=== PATIENT | male | born 1955 | race Caucasian/White ===

== ENCOUNTER 2023-12-22 10:46 | Inpatient (IN) | payer OTHER ==
[2023-12-22] MEDS ORDERED: HYDROMORPHONE HCL 1 MG/ML INJ ONE (11:18)
[2023-12-22] MEDS ORDERED: ONDANSETRON 4 MG/2 ML VIAL ONE (11:18)
[2023-12-22 11:26] LABS: Absolute Eosinophils 0.2 K/uL (0-0.5); Absolute Lymphocytes (CBC) 0.8 K/uL (0.7-4.9); Absolute Monocytes 0.7 K/uL (0.1-1.3); Absolute Neutrophil 2.9 K/uL (1.8-8.0); Basophils % 0.8 % (0-1.3); Eosinophils % 4.8 % (0-4.4); Hematocrit 29.5 % (39.6-49.0); Hemoglobin 9.2 g/dL (13.6-17.9); MCH 24.7 pg (27.0-35.0); MCV 79.7 fL (80-100); MPV 9.3 fL (7.6-11.3); Monocytes % 14.5 % (3.3-12.3); Neutrophils % 62.9 % (41.7-73.7); Platelets 139 thou/uL (152-406); Red Cell Distribution Width 16.7 % (12.1-15.2)
[2023-12-22 11:40] LABS: PT Prothrombin Time 11.5 SECONDS (9.5-12.5); Protime INR 1.05
--- NOTE | 2023-12-22 11:41 | RAD REPORT ---
EXAM DESCRIPTION: CT - Head Brain Wo Cont - 12/22/2023 11:31 am CLINICAL HISTORY: Headache COMPARISON: none TECHNIQUE: Computed axial tomography of the head was obtained. IV contrast was not requested. All CT scans are performed using dose optimization technique as appropriate and may include automated exposure control or mA/KV adjustment according to patient size. FINDINGS: An intracranial bleed is not seen The ventricles are normal in caliber No significant hypodense areas within the brain visualized No extra-axial fluid collection is noted. Fluid within the sinuses/ mastoids is not seen IMPRESSION: No acute intracranial abnormality is seen If patient's symptoms persist MRI of the brain would be recommended
--- NOTE | 2023-12-22 11:45 | RAD REPORT ---
EXAM DESCRIPTION: CT - Chest For Pe Angio - 12/22/2023 11:31 am CLINICAL HISTORY: Chest pain COMPARISON: None. TECHNIQUE: Dynamically enhanced axial 3 mm thick images of the chest were obtained during administra tion of 100 mL Isovue 370 IV contrast. Coronal and oblique reconstruction images were generated and r eviewed. Exam utilizes a protocol for optimal evaluation of pulmonary arterial tree. Maximum intensity projections 3D imaging was utilized All CT scans are performed using dose optimization technique as appropriate and may include automated exposure control or mA/KV adjustment according to patient size. FINDINGS: A pulmonary embolus is not seen. A thoracic aortic aneurysm is not noted. A pleural effusion is not seen. A pericardial effusion is not seen. Cardiomegaly A lung consolidation is not present. IMPRESSION: Negative for a pulmonary embolism.
[2023-12-22] MEDS ORDERED: KETOROLAC 30 MG/ML INJ ONE (11:59)
[2023-12-22 12:01] LABS: Albumin 3.3 g/dL (3.4-5.0); Albumin/Globulin Ratio 0.8 (1.1-1.8); Anion Gap 5.7 mEq/L (5.0-15.0); Bilirubin Direct 0.1 mg/dL (0-0.2); Bilirubin Indirect, Calculated 0.2 mg/dL (0.2-0.8); Bilirubin Total 0.3 mg/dL (0.2-1.0); Globulin 4.3 g/dL (2.3-3.5); Magnesium 2.2 mg/dL (1.6-2.4); Potassium 3.7 mEq/L (3.5-5.1); Protein, Total 7.6 g/dL (6.4-8.2); Troponin High Sensitivity 15.3 pg/mL (<58.9)
--- NOTE | 2023-12-22 13:36 | ER ---
Nurse's Notes [facility] Name: Jorge Patterson Age: 68 yrs Sex: Male : 1955 Arrival Date: 12/22/2023 Time: 10:46 Bed 18 Private MD: Diagnosis: NSTEMI, Chest Pain Presentation: 12/21 10:50 Chief complaint: Patient states: right sided chest pain radiating to right arm X 30 iw min. Coronavirus screen: At this time, the client does not indicate any symptoms associated with coronavirus-19. Ebola Screen: Patient negative for fever greater than or equal to 101.5 degrees Fahrenheit, and additional compatible Ebola Virus Disease symptoms Patient denies exposure to infectious person. Patient denies travel to an Ebola-affected area in the 21 days before illness onset. No symptoms or risks identified at this time. Initial Sepsis Screen: Does the patient meet any 2 criteria? No. Patient's initial sepsis screen is negative. Does the patient have a suspected source of infection? No. Patient's initial sepsis screen is negative. Risk Assessment: Do you want to hurt yourself or someone else? Patient reports no desire to harm self or others. Onset of symptoms was December 22, 2023. 10:50 Method Of Arrival: Wheelchair iw 10:50 Acuity: ERICKA 3 iw Historical: - Allergies: 10:51 No Known Allergies; iw - Home Meds: 10:51 None [Active]; iw - PMHx: 10:51 None; iw - PSHx: 11:00 Cholecystectomy; iw - Immunization history:: Adult Immunizations not up to date. - Infectious Disease History:: Denies. - Social history:: Smoking status: Patient denies any tobacco usage or history of. Screenin:26 [facility] ED Fall Risk Assessment (Adult) History of falling in the last 3 months, db including since admission No falls in past 3 months (0 pts) Confusion or Disorientation No (0 pts) Intoxicated or Sedated No (0 pts) Impaired Gait No (0 pts) Mobility Assist Device Used No (0 pt) Altered Elimination No (0 pt) Score/Fall Risk Level 0 - 2 = Low Risk Oriented to surroundings, Maintained a safe environment. Abuse screen: Denies threats or abuse. Denies injuries from another. Nutritional screening: No deficits noted. Tuberculosis screening: No symptoms or risk factors identified. Assessment: 11:15 Reassessment: Patient appears in no apparent distress at this time. Patient and/or db family updated on plan of care and expected duration. Pain level reassessed. Patient is alert, oriented x 3, equal unlabored respirations, skin warm/dry/pink. General: Appears in no apparent distress. comfortable, Behavior is calm, cooperative. Pain: Complains of pain in chest and right arm Pain radiates to back and chest. Pain: Pain began suddenly, 1 hour ago. Neuro: Level of Consciousness is awake, alert, obeys commands, Oriented to person, place, time, situation. Cardiovascular: Reports chest pain, Capillary refill < 3 seconds Patient's skin is warm and dry. 13:07 Reassessment: Patient appears in no apparent distress at this time. Patient and/or db family updated on plan of care and expected duration. Pain level reassessed. Patient is alert, oriented x 3, equal unlabored respirations, skin warm/dry/pink. Patient states feeling better. Patient states symptoms have improved. 13:34 Reassessment: Patient appears in no apparent distress at this time. Patient and/or db family updated on plan of care and expected duration. Pain level reassessed. Patient is alert, oriented x 3, equal unlabored respirations, skin warm/dry/pink. REPEAT EKG DONE AND GIVEN TO PROVIDER. 14:20 Reassessment: Patient appears in no apparent distress at this time. Patient and/or db family updated on plan of care and expected duration. Pain level reassessed. Patient is alert, oriented x 3, equal unlabored respirations, skin warm/dry/pink. Patient states feeling better. Patient states symptoms have improved. 15:00 Reassessment: PT REFUSED GOWN. db 15:14 Reassessment: CALLED LAB FOR ADD ON PTT. db 15:30 Reassessment: Patient appears in no apparent distress at this time. Patient and/or db family updated on plan of care and expected duration. Pain level reassessed. Patient is alert, oriented x 3, equal unlabored respirations, skin warm/dry/pink. Patient states feeling better. Patient states symptoms have improved. Vital Signs: 11:01 BP 177 / 105; Pulse 68; Resp 16; Temp 97.8; Pulse Ox 97% ; Weight 72.57 kg; Height 6 iw ft. 0 in. ; Pain 10/10; 11:30 BP 166 / 89; Pulse 70; Resp 18; Pulse Ox 94% on R/A; db 12:30 BP 147 / 87; Pulse 64; Resp 18; Pulse Ox 97% on R/A; db 13:00 BP 161 / 82; Pulse 64; Resp 16; Pulse Ox 97% on R/A; db 13:30 BP 146 / 99; Pulse 73; Resp 14; Pulse Ox 96% on R/A; db 14:00 BP 136 / 88; Pulse 62; Resp 16; Pulse Ox 97% on R/A; db 15:00 BP 127 / 78; Pulse 68; Resp 18; Temp 97.8; Pulse Ox 95% ; db 15:30 BP 118 / 86; Pulse 71; Resp 18; Pulse Ox 95% on R/A; db 11:01 Body Mass Index 21.70 (72.57 kg, 182.88 cm) iw 11:01 Pain Scale: Adult iw ED Course: 10:47 Patient arrived in ED. mr 10:50 Diane Wray MD is Attending Physician. sp3 10:51 Triage completed. iw 11:00 Arm band placed on. iw 11:06 Vanessa Ortega, RN is Primary Nurse. db 11:15 Inserted saline lock: 22 gauge in left forearm, using aseptic technique. Blood db collected. 11:15 Initial lab(s) drawn, by me, sent to lab. db 11:[address] db 11:26 Patient has correct armband on for positive identification. Bed in low position. Call db light in reach. Side rails up X 1. Client placed on continuous cardiac and pulse oximetry monitoring. NIBP monitoring applied. youth nutritional monitor on. Pulse ox on. NIBP on. Warm blanket given. 11:33 CT Chest For PE Angio In Process Unspecified. EDMS 11:33 CT Head Brain wo Cont In Process Unspecified. EDMS 12:59 Repeat lab(s) drawn. by me, sent to lab. iw 13:34 EKG done, by ED staff, reviewed by Diane Wray MD. db 13:35 Juan Marrufo MD is Hospitalizing Provider. sp3 16:06 Provided Education on: ADMISSION AND CHEST PAIN. db 16:06 No provider procedures requiring assistance completed. Patient admitted, IV remains in db place. O2 via ROOM AIR. Administered Medications: 11:18 Drug: HYDROmorphone IVP 1 mg IVP once Route: IVP; Site: left forearm; db 13:53 Follow up: Response: No adverse reaction db 11:18 Drug: Ondansetron IVP 4 mg IVP once; over 2 minutes Route: IVP; Site: left forearm; db 13:53 Follow up: Response: No adverse reaction db 11:58 Drug: Ketorolac IVP 15 mg IVP once Route: IVP; Site: left forearm; db 13:53 Follow up: Response: No adverse reaction; Pain is decreased db 13:51 Drug: Aspirin PO Chewable Tablet 324 mg PO once; 81 mg tablets x 4 Route: PO; db 16:05 Follow up: Response: No adverse reaction db 15:21 Drug: Heparin ([place]-Bolus No thrombolytic) - HEParin IVP 60 units/kg IVP once; Max 5000 db units {Co-Signature: iw (Linda Fitzpatrick RN).} Route: IVP; Site: left forearm; 16:05 Follow up: Response: No adverse reaction db 15:21 Drug: Heparin ([place] Drip) 12 units/kg/[place] - ([place] [address] units, D5W IV 500 ml) IV at db calculated rate Per protocol; Max initial rate 1000 units/hr {Co-Signature: iw (Linda Fitzpatrick RN).} Route: IV; Rate: calculated rate; Site: left forearm; 16:05 Follow up: Response: No adverse reaction; IV Status: Infusion continued db Medication: 11:27 VIS not applicable for this client. db Outcome: 13:35 Decision to Hospitalize by Provider. sp3 16:06 Admitted to Med/surg via stretcher, with chart, db 16:06 Condition: stable 16:06 Instructed on the need for admit, 16:08 Patient left the ED. db Signatures: Dispatcher [employer] EDIN Татьяна Camargo, Reg Reg mr Linda Fitzpatrick, SILVA RN iw Diane Wray MD MD sp3 Vanessa Ortega RN RN db Linda Fitzpatrick RN iw Corrections: (The following items were deleted from the chart) 11:02 11:01 Pulse 68bpm; Resp 16bpm; Pulse Ox 97%; Temp 97.8F; 72.57 kg; Height 6 ft. 0 in.; iw BMI: 21.7; Pain 10/10, Adult; iw
--- NOTE | 2023-12-22 13:36 | EDPHYS ---
Physician Documentation [facility] Name: Jorge Patterson Age: 68 yrs Sex: Male : 1955 Arrival Date: 12/22/2023 Time: 10:46 Bed 18 Private MD: ED Physician Diane Wray HPI: 12/21 11:02 This 68 yrs old Male presents to ER via Wheelchair with complaints of Chest Pain, Arm sp3 Pain. 11:02 68-year-old male with no past medical history on no medications presents to the ED with sp3 a 2-hour history of right-sided chest pain radiating to his arm and headache. He denies any left-sided symptoms, shortness of breath, back pain, abdominal pain, vomiting, diarrhea, injury or trauma, recent travel or prolonged immobilization, prior PE or DVT thromboembolic disease, fever, URI symptoms, repetitive use or labor, or any other signs or symptoms on ROS at this time. Pain is described as sharp in nature on the right side of his chest.. Historical: - Allergies: 10:51 No Known Allergies; iw - Home Meds: 10:51 None [Active]; iw - PMHx: 10:51 None; iw - PSHx: 11:00 Cholecystectomy; iw - Immunization history:: Adult Immunizations not up to date. - Infectious Disease History:: Denies. - Social history:: Smoking status: Patient denies any tobacco usage or history of. ROS: 11:03 Constitutional: Negative for fever, chills, and weight loss, Eyes: Negative for injury, sp3 pain, redness, and discharge, ENT: Negative for injury, pain, and discharge, Neck: Negative for injury, pain, and swelling, Respiratory: Negative for shortness of breath, cough, wheezing, and pleuritic chest pain, Abdomen/GI: Negative for abdominal pain, nausea, vomiting, diarrhea, and constipation, Back: Negative for injury and pain, MS/Extremity: Negative for injury and deformity, Skin: Negative for injury, rash, and discoloration, Psych: Negative for depression, anxiety, suicide ideation, homicidal ideation, and hallucinations, Allergy/Immunology: Negative for hives, rash, and allergies, Endocrine: Negative for neck swelling, polydipsia, polyuria, polyphagia, and marked weight changes, Hematologic/Lymphatic: Negative for swollen nodes, abnormal bleeding, and unusual bruising, 11:03 All other systems are negative, Exam: 11:03 Constitutional: This is a well developed, well nourished patient who is awake, alert, sp3 and in no acute distress. Head/Face: Normocephalic, atraumatic. Eyes: Pupils equal round and reactive to light, extra-ocular motions intact. Lids and lashes normal. Conjunctiva and sclera are non-icteric and not injected. Cornea within normal limits. Periorbital areas with no swelling, redness, or edema. ENT: Nares patent. No nasal discharge, no septal abnormalities noted. External auditory canals are clear. Oropharynx with no redness, swelling, or masses, exudates, or evidence of obstruction, uvula midline. Mucous membranes moist. Neck: Trachea midline, no thyromegaly or masses palpated, and no cervical lymphadenopathy. Supple, full range of motion without nuchal rigidity, or vertebral point tenderness. No Meningismus. Chest/axilla: Normal chest wall appearance and motion. Nontender with no deformity. No lesions are appreciated. Cardiovascular: Regular rate and rhythm with a normal S1 and S2. No gallops, murmurs, or rubs. Normal PMI, no JVD. No pulse deficits. Respiratory: Lungs have equal breath sounds bilaterally, clear to auscultation and percussion. No rales, rhonchi or wheezes noted. No increased work of breathing, no retractions or nasal flaring. Abdomen/GI: Soft, non-tender, with normal bowel sounds. No distension or tympany. No guarding or rebound. No evidence of tenderness throughout. Back: No spinal tenderness. No costovertebral tenderness. Full range of motion. Skin: Warm, dry with normal turgor. Normal color with no rashes, no lesions, and no evidence of cellulitis. MS/ Extremity: Pulses equal, no cyanosis. Neurovascular intact. Full, normal range of motion. Neuro: Awake and alert, GCS 15, oriented to person, place, time, and situation. Cranial nerves II-XII grossly intact. Motor strength 5/5 in all extremities. Sensory grossly intact. Cerebellar exam normal. Normal gait. Psych: Awake, alert, with orientation to person, place and time. Behavior, mood, and affect are within normal limits. 11:03 ECG was reviewed by the Attending Physician. EKG demonstrates normal sinus rhythm at 60 bpm with normal intervals, normal QRS, high voltage, nonspecific diffuse ST's ST changes without evidence of acute ischemia. Vital Signs: 11:01 BP 177 / 105; Pulse 68; Resp 16; Temp 97.8; Pulse Ox 97% ; Weight 72.57 kg; Height 6 iw ft. 0 in. ; Pain 10/10; 11:30 BP 166 / 89; Pulse 70; Resp 18; Pulse Ox 94% on R/A; db 12:30 BP 147 / 87; Pulse 64; Resp 18; Pulse Ox 97% on R/A; db 13:00 BP 161 / 82; Pulse 64; Resp 16; Pulse Ox 97% on R/A; db 13:30 BP 146 / 99; Pulse 73; Resp 14; Pulse Ox 96% on R/A; db 14:00 BP 136 / 88; Pulse 62; Resp 16; Pulse Ox 97% on R/A; db 15:00 BP 127 / 78; Pulse 68; Resp 18; Temp 97.8; Pulse Ox 95% ; db 15:30 BP 118 / 86; Pulse 71; Resp 18; Pulse Ox 95% on R/A; db 11:01 Body Mass Index 21.70 (72.57 kg, 182.88 cm) iw 11:01 Pain Scale: Adult iw MDM: 10:52 Patient medically screened. sp3 11:04 Data reviewed: vital signs, nurses notes, lab test result(s), EKG, radiologic studies. sp3 ED course: 68-year-old male with right-sided chest pain and headache. Differential diagnosis includes acute coronary syndrome spectrum, pleurisy, MSK pain, PE, pneumonia, other intracranial pathology, among others. Workup will include CT scan of the chest and a PE protocol, CT scan of the head, EKG, laboratory values and general supportive care and treatment with Dilaudid and Zofran IV. Disposition pending workup and patient course.. 12:56 ED course: Negative workup on patient including CT head, CT chest and laboratory values sp3 and troponin. Patient feels much improved after the ketorolac. I offered 23-hour observation and cardiology consultation. Patient elects to go home. We will obtain 1 more troponin value prior to discharge. I have urged patient to stay however he states he will come back if he gets worse and follow-up with cardiology outpatient. Will treat this is an informed discharge after second troponin and safely discharge him home with instructions to return for any reason whatsoever.. 13:34 ED course: Second troponin 289. Chest pain is fairly resolved at this time. Repeat EKG sp3 and vital signs are pending. We will place patient inpatient and consult cardiology which I have already spoken with Dr. Hayes.. 13:43 ED course: Second EKG taken at 1334 demonstrates no significant interval change and no sp3 concerning ST/T-segment changes.. 12/21 10:57 Order name: Basic Metabolic Panel; Complete Time: 12:16 sp3 12/21 10:57 Order name: CBC with Diff; Complete Time: 11:57 3 12/21 10:57 Order name: LFT's; Complete Time: 12:16 3 12/21 10:57 Order name: Magnesium; Complete Time: 12:16 3 12/21 10:57 Order name: NT PRO-BNP; Complete Time: 12:16 sp3 12/21 10:57 Order name: PT-INR; Complete Time: 11:57 3 12/21 10:57 Order name: Troponin HS; Complete Time: 12:16 3 12/21 12:51 Order name: Troponin High Sensitivity; Complete Time: 13:32 sp3 12/21 15:14 Order name: Ptt, Activated; Complete Time: 15:29 db 12/21 10:57 Order name: CT Chest For PE Angio; Complete Time: 11:57 12/21 10:57 Order name: CT Head Brain wo Cont; Complete Time: 11:57 3 12/21 10:57 Order name: EKG; Complete Time: 10:57 12/21 10:57 Order name: Cardiac monitoring; Complete Time: 11:23 3 12/21 10:57 Order name: EKG - Nurse/Tech; Complete Time: 11:23 sp3 12/21 10:57 Order name: IV Saline Lock; Complete Time: 11:23 12/21 10:57 Order name: Labs collected and sent; Complete Time: 11:23 3 12/21 10:57 Order name: O2 Per Protocol; Complete Time: 11:24 12/21 10:57 Order name: O2 Sat Monitoring; Complete Time: 11:24 12/21 10:57 Order name: NPO; Complete Time: 12:19 sp3 Administered Medications: 11:18 Drug: HYDROmorphone IVP 1 mg IVP once Route: IVP; Site: left forearm; db 13:53 Follow up: Response: No adverse reaction db 11:18 Drug: Ondansetron IVP 4 mg IVP once; over 2 minutes Route: IVP; Site: left forearm; db 13:53 Follow up: Response: No adverse reaction db 11:58 Drug: Ketorolac IVP 15 mg IVP once Route: IVP; Site: left forearm; db 13:53 Follow up: Response: No adverse reaction; Pain is decreased db 13:51 Drug: Aspirin PO Chewable Tablet 324 mg PO once; 81 mg tablets x 4 Route: PO; db 16:05 Follow up: Response: No adverse reaction db 15:21 Drug: Heparin ([place]-Bolus No thrombolytic) - HEParin IVP 60 units/kg IVP once; Max 5000 db units {Co-Signature: Linda Panda RN).} Route: IVP; Site: left forearm; 16:05 Follow up: Response: No adverse reaction db 15:21 Drug: Heparin ([place] Drip) 12 units/kg/[place] - ([place] [address] units, D5W IV 500 ml) IV at db calculated rate Per protocol; Max initial rate 1000 units/hr {Co-Signature: Linda Panda RN).} Route: IV; Rate: calculated rate; Site: left forearm; 16:05 Follow up: Response: No adverse reaction; IV Status: Infusion continued db Disposition Summary: 12/22/23 13:35 Hospitalization Ordered Notes: Hospitalization Status: Inpatient Admission sp3 Provider: Juan Marrufo sp3 Location: Telemetry/MedSur (Inpatient) sp3 Condition: Stable sp3 Problem: an acute exacerbation sp3 Symptoms: have worsened sp3 Bed/Room Type: Standard sp3 Room Assignment: 205(12/22/23 14:59) bd Diagnosis - NSTEMI, Chest Pain sp3 Forms: - Medication Reconciliation Form sp3 - SBAR form sp3 - Leadership Thank You Letter sp3 Signatures: Dispatcher [employer] EDMS Kiera Delarosa Irene, RN RN Orion Jeffries FNP-C FNP-[facility] Diane Wray MD MD sp3 Vanessa Ortega RN RN db Linda Fitzpatrick RN iw Corrections: (The following items were deleted from the chart) 10:57 10:57 BASIC METABOLIC PANEL+C.LAB.BRZ ordered. EDMS EDMS 10:57 10:57 CBC+H.LAB.BRZ ordered. EDMS EDMS 10:57 10:57 HEPATIC FUNCTION+C.LAB.BRZ ordered. EDMS EDMS 10:57 10:57 MAGNESIUM+C.LAB.BRZ ordered. EDMS EDMS 10:57 10:57 PROBNP+C.LAB.BRZ ordered. EDMS EDMS 10:57 10:57 PROTIME (+INR)+COAG.LAB.BRZ ordered. EDMS EDMS 10:57 10:57 Troponin High Sensitivity+C.LAB.BRZ ordered. EDMS EDMS 10:57 10:57 Chest For PE Angio+CT.RAD.BRZ ordered. EDMS EDMS 10:57 10:57 Head Brain Wo Cont+CT.RAD.BRZ ordered. EDMS EDMS 14:59 13:35 sp3 bd
[2023-12-22] MEDS ORDERED: ASPIRIN 81 MG CHEWABLE TABLET ONE (13:50)
[2023-12-22] MEDS ORDERED: HEPARIN 5000 UNIT/ML 1 ML VIAL ONE (14:28)
[2023-12-22] MEDS ORDERED: HEPARIN/D5W 25,000 UNIT/500 ML BAG IV ONE (14:29)
--- NOTE | 2023-12-22 15:07 | P.HP ---
Certification for Inpatient Patient admitted to: Inpatient With expected LOS: >2 Midnights Patient will require the following post-hospital care: None Practitioner: I am a practitioner with admitting privileges, knowledge of patient current condition, hospital course, and medical plan of care. Services: Services provided to patient in accordance with Admission requirements found in Title 42 Section 412.3 of the Code of Federal Regulations Patient History Date of Service: 12/22/23 Reason for admission: NSTEMI History of Present Illness: 68-year-old otherwise healthy male presents the emergency department chief complaint of right arm pain, chest pain. He reports that his symptoms started while walking around today getting ready to move. He also noted that he rides his bike approximately 15 miles per day approximately 5 days/week in the past few times has been riding his bike he had similar pain in his right arm radiating to his chest. He does not see a doctor regularly and has not had any testing including stress test or heart catheterization in the past. He was evaluated in the emergency department his initial high sensitive troponin was within normal limits, second troponin was obtained as initially patient wanted to go home but it was elevated at 289.1, patient agreeable to stay in the hospital for NSTEMI. Of note he was also anemic with a hemoglobin of 9.2, no known history of anemia denies bright red blood per rectum, melena or hematochezia. ED physician discussed case with cardiology who recommends admission to hospital service. 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 moist/pink Neck: Supple, 2+ carotid pulse no bruit, No LAD Respiratory: Clear to auscultation bilaterally, Normal air movement Cardiovascular: Regular rate/rhythm, Normal S1 S2 Gastrointestinal: Normal bowel sounds, No tenderness Musculoskeletal: No tenderness Integumentary: No rashes Neurological: Normal speech, Normal strength at 5/5 x4 extr, Normal tone, Normal affect - Studies Laboratory Data (last 24 hrs) 12/22/23 12/22/23 12/22/23 11:15 11:15 11:15 WBC 4.70 Hgb 9.2 L Hct 29.5 L Plt Count 139 L PT 11.5 INR 1.05 Sodium 137 Potassium 3.7 BUN 11 Creatinine 1.40 H Glucose 173 H Magnesium 2.2 Total Bilirubin 0.3 AST 19 ALT 21 Alkaline Phosphatase 84 Assessment and Plan - Plan Assessment: NSTEMI Microcytic anemia Plan: NSTEMI Given aspirin in ED Heparin drip ordered, trend troponin, monitor on telemetry Cardiology consulted, called by ED staff Echocardiogram ordered Initiated aspirin, statin, beta-delisa therapy Currently pain-free, n.p.o. after midnight in case of need for heart catheterization Microcytic anemia Not known to be anemic Denies melena, hematochezia, hematemesis Iron studies ordered Reports had a colonoscopy about 40 years ago Discussed importance of colonoscopy as an outpatient to further assess his anemia DVT PPX: Heparin drip Code status: Full Discharge Plan: Home Plan to discharge in: 72 Hours - Advance Directives Does patient have a Living Will: No Does patient have a Durable POA for Healthcare: No - Code Status/Comfort Care Code Status Assessed: Yes (Full code) Critical Care: No Time Spent Managing Pts Care (In Minutes): 70
[2023-12-22 18:18] VITALS: BMI 21.7
[2023-12-22] MEDS ORDERED: ONDANSETRON 4 MG/2 ML VIAL IV PRN (18:18)
[2023-12-22] MEDS: NICOTINE 21 MG/PAT TD SCH (18:23)
[2023-12-22] MEDS ORDERED: HEPARIN/D5W 25,000 UNIT/500 ML BAG IV SCH (18:26)
[2023-12-22] MEDS: ATORVASTATIN 40 MG TAB PO SCH (20:44)
[2023-12-22] MEDS: NA CHLORIDE 0.9% 1,000 ML IV SCH (20:44)
[2023-12-22] MEDS: METOPROLOL TAR 25 MG TAB PO SCH (20:45)
[2023-12-23 07:21] LABS: Absolute Basophils 0.1 K/uL (0-0.5); Absolute Eosinophils 0.2 K/uL (0-0.5); Absolute Monocytes 0.7 K/uL (0.1-1.3); Absolute Neutrophil 3.9 K/uL (1.8-8.0); Eosinophils % 4.2 % (0-4.4); Hematocrit 26.6 % (39.6-49.0); Hemoglobin 8.2 g/dL (13.6-17.9); Lymphocytes % 16.3 % (15.3-44.8); MCH 24.7 pg (27.0-35.0); MCV 79.6 fL (80-100); MPV 9.4 fL (7.6-11.3); Monocytes % 11.7 % (3.3-12.3); Neutrophils % 66.8 % (41.7-73.7); Platelets 108 thou/uL (152-406); RBC Red Blood Cell Count 3.34 M/uL (4.33-5.43); Red Cell Distribution Width 16.4 % (12.1-15.2)
[2023-12-23 07:49] LABS: Albumin 2.9 g/dL (3.4-5.0); Albumin/Globulin Ratio 0.8 (1.1-1.8); Anion Gap 7.2 mEq/L (5.0-15.0); Bilirubin Total 0.3 mg/dL (0.2-1.0); Ferritin 7.9 ng/mL (26-388); Globulin 3.8 g/dL (2.3-3.5); Potassium 4.2 mEq/L (3.5-5.1); Protein, Total 6.7 g/dL (6.4-8.2); Thyroid Stimulating Hormone 1.18 uIU/mL (0.358-3.740)
--- NOTE | 2023-12-23 08:31 | P.CNS ---
Date of Consult: 12/23/23 Chief Complaint: NSTEMI History of Present Illness: Patient with PMH of tobacco use, presented with chest pain/right arm pain that has been going on for few days but got worse yesterday, patient is active and ride a bike daily, denies any other associated symptoms. 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 [employer] - Social History Smoking Status: Current every day smoker Alcohol use: No CD- Drugs: No Caffeine use: Yes Place of Residence: Home Review of Systems 10-point ROS is otherwise unremarkable Physical Examination Temp Pulse Resp BP Pulse Ox 97.7 F 68 18 125/58 L 95 12/23/23 04:00 12/23/23 06:01 12/23/23 04:00 12/23/23 06:01 12/23/23 04:00 General: Alert, Oriented x3 HEENT: Atraumatic Neck: Supple Respiratory: Clear to auscultation bilaterally Cardiovascular: No edema, Regular rate/rhythm, Normal S1 S2 Gastrointestinal: Normal bowel sounds Laboratory Data (last 24 hrs) 12/22/23 12/22/23 12/22/23 11:15 11:15 11:15 WBC 4.70 Hgb 9.2 L Hct 29.5 L Plt Count 139 L PT 11.5 INR 1.05 APTT 31.8 Sodium Potassium BUN Creatinine Glucose Magnesium Total Bilirubin AST ALT Alkaline Phosphatase 12/22/23 11:15 WBC Hgb Hct Plt Count PT INR APTT Sodium 137 Potassium 3.7 BUN 11 Creatinine 1.40 H Glucose 173 H Magnesium 2.2 Total Bilirubin 0.3 AST 19 ALT 21 Alkaline Phosphatase 84 - Problems (1) NSTEMI (non-ST elevated myocardial infarction) Current Visit: Yes Status: Acute Plan: ASA 81 mg daily Heparin drip Lipitor 40 mg daily laboratory director today for coronary angiogram. (2) HTN (hypertension) Current Visit: Yes Status: Acute Plan: Continue Metoprolol get Echo (3) HLD (hyperlipidemia) Current Visit: Yes Status: Acute Plan: Continue Lipitor
[2023-12-23] MEDS ORDERED: LIDOCAINE 1% 20 ML MDV ONE (08:39)
[2023-12-23] MEDS ORDERED: HEPA 1000U/500MLS 2,000 UNIT/1,000 ML BAG IV ONE (08:40)
[2023-12-23] MEDS ORDERED: FENTANYL CITR 100 MCG/2 ML ONE (08:42)
[2023-12-23] MEDS ORDERED: VERAPAMIL HCL 10 MG/4 ML VIAL IV ONE (08:42)
[2023-12-23] MEDS ORDERED: MIDAZOLAM HCL 2 MG/2 ML INJ ONE (08:42)
[2023-12-23] MEDS ORDERED: HEPARIN 5000 UNIT/ML 1 ML VIAL ONE (08:42)
[2023-12-23] MEDS ORDERED: ATROPINE SULF 1 MG/10 ML SYR IV ONE (08:42)
[2023-12-23] MEDS ORDERED: TICAGRELOR 90 MG TABLET PO ONE (08:43)
[2023-12-23] MEDS ORDERED: ASPIRIN 325 MG TAB ONE (08:43)
[2023-12-23] MEDS ORDERED: CLOPIDOGREL 75 MG TABLET ONE (08:43)
[2023-12-23] MEDS ORDERED: HEPARIN 10,000 UNIT/10 ML VIAL IV ONE (08:43)
[2023-12-23] MEDS: ASPIRIN EC 81 MG TAB PO SCH (09:00)
--- NOTE | 2023-12-23 10:59 | OP ---
Date of Procedure: 12/23/2023 Surgeon: Jacques Conrad Procedures Performed: 1.Left heart catheterization. 2.Coronary angiogram. 3.PTCA of the diagonal branch. 4.PCI of the mid LAD. Indication For Procedure: Non-ST elevation CT. Complications: None. Sedation Time: 1 hour. Estimated Blood Loss: Less than 50 cc. Access: Right radial, closed by TR band. Description Of Procedure: After risks, benefits, and alternatives were explained to the patient, the patient agreed to proceed with procedure and signed informed consent. The patient was brought to [facility] catheterization lab, prepped and draped in sterile fashion. We accessed the right radial artery us ing micropuncture ultrasound-guided technique. A 6-Japanese sheath was introduced and a Phoenix 4 cathet er was advanced over J-wire to the left ventricular cavity. EDP was obtained. Pullback did not show any gradient. Selective angiogram was done. Next, we exchanged catheter for an XB LAD 3.5 mm guide . Heparin was administered. ACT was therapeutic. First run-through wire was passed into the diagon al and the second run-through wire was passed into the LAD across the lesion. PTCA of the diagonal b ranch was done with an NC 2.25 mm balloon and then we did pre-dilated the mid LAD lesions with a 3.0 mm balloon. Next, Synergy 3.5 x 28 mm drug-eluting stent was applied to close the lesion. Then, we re-crossed into the diagonal with an LAD wire and PTCA was done with a 2.5 mm balloon and then we pos tdilated the mid LAD stent with a 3.5 x 12 mm NC balloon up to 16 atmosphere. Final angiogram shows ALTAGRACIA-3 flow. The wires were removed. XB LAD guide was removed over a J-wire and access was closed w ith a TR band. Findings: 1.Left main is normal. 2.LAD, proximal 30% disease and mid hazy 70% disease that looks like an ulcerative plaque. PCI done with Synergy 3.5 x 28 mm drug-eluting stent. This was followed by mid mild intramyocardial bridge a nd then distal mild LI. 3.Diagonal 1 is a medium-sized artery, 2.5 mm in diameter, proximal 80% disease, PTCA was done with 2.5 mm balloon. Distal mild LI. 4.Left circ, mild luminal irregularities. 5.RCA, mild luminal irregularities. Assessment: 1.Significant mid LAD disease, that is the culprit lesion for the non-STEMI, so PCI was done with Sy nergy 3.5 x 28 mm drug-eluting stent. 2.Significant diagonal 1 disease, small artery for bifurcation and stenting, so PTCA was done. ALTAGRACIA -3 flow at the end. Plan: 1.Aspirin 81 mg daily for life. 2.Brilinta 180 mg p.o. x1 was given in the optical laboratory technician and advised to continue Brilinta 90 mg p.o. b.i. d. for 12 months. 3.Continue aggressive medical treatment for CAD. JASON/YOSEF Voice ID: [id number] Report ID: [id number]
[2023-12-23] MEDS: FUROSEMIDE 20 MG/ 2ML VIAL ONE (11:31)
[2023-12-23] MEDS: CLOPIDOGREL 75 MG TABLET PO ONE (12:00)
--- NOTE | 2023-12-23 13:38 | P.PN ---
Date of Service: 12/23/23 Subjective: Feeling better today S/P heart cath no acute events overnight ROS: 10 point ROS as noted above, otherwise negative Physical exam GEN: Alert, oriented, NAD HEENT: Normal conjunctiva, sclera anicteric CV: Regular rate and rhythm, no edema Pulm: Nonlabored respirations on room air ABD: Soft, nontender, nondistended MSK: No joint tenderness Integumentary: No rashes Neuro: Normal speech, normal affect Vitals reviewed Assessment: NSTEMI Iron deficiency anemia Plan: Secondary to NSTEMI secondary to LAD, diagonal 1 stenosis LAD stent placed, angioplasty performed on diagonal 1 Cardiology following Echocardiogram ordered Initiated aspirin, statin, beta-delisa therapy Possible discharge in AM if doing well Will need new RX for ASA, Plavix, Statin, metoprolol Iron deficiency anemia Not known to be anemic Denies melena, hematochezia, hematemesis Iron deficient on lab Reports had a colonoscopy about 40 years ago Discussed importance of colonoscopy as an outpatient to further assess his anemia/risk of malignancy Discussed need for PO iron, started DVT PPX: Lovenox Code status: Full Discharge Plan: Home Plan to discharge in: 24 hours Time Spent Managing Pts Care (In Minutes): 35
--- NOTE | 2023-12-23 16:42 | EKG ---
Test Date: 2023-12-23 Test Time: 11:12:45 Social Media Designer: CAILIN MEASUREMENT RESULTS: Intervals: Rate: 67 FL: 104 QRSD: 76 QT: 428 QTc: 452 [place]: P: 59 FL: 104 QRS: 81 T: 91 INTERPRETIVE STATEMENTS: Sinus rhythm with sinus arrhythmia with short FL with occasional premature ventricular complexes Nonspecific ST abnormality Abnormal ECG Compared to ECG 12/22/2023 13:34:29 Ventricular premature complex(es) now present Short FL interval now present ST (T wave) deviation now present Atrial premature complex(es) no longer present Left ventricular hypertrophy no longer present Electronically Signed On 12-23-23 16:41:18 CDT by Carson Rodriguez
--- NOTE | 2023-12-23 16:44 | EKG ---
Test Date: 2023-12-22 Test Time: 13:34:29 Mast Maker: WERNER MEASUREMENT RESULTS: Intervals: Rate: 71 KS: 114 QRSD: 94 QT: 420 QTc: 456 [place]: P: 48 KS: 114 QRS: 70 T: 78 INTERPRETIVE STATEMENTS: Sinus rhythm with premature supraventricular complexes Left ventricular hypertrophy Abnormal ECG Compared to ECG 12/22/2023 10:56:12 No significant changes Electronically Signed On 12-23-23 16:41:52 CDT by Carson Rodriguez
--- NOTE | 2023-12-23 16:45 | EKG ---
Test Date: 2023-12-22 Test Time: 10:56:12 Management Services Technician: WERNER MEASUREMENT RESULTS: Intervals: Rate: 68 MO: 112 QRSD: 96 QT: 402 QTc: 427 [place]: P: 66 MO: 112 QRS: 74 T: 77 INTERPRETIVE STATEMENTS: Sinus rhythm with premature supraventricular complexes Left ventricular hypertrophy Abnormal ECG No previous ECG available for comparison Electronically Signed On 12-23-23 16:42:03 CDT by Carson Rodriguez
[2023-12-23] MEDS ORDERED: TICAGRELOR 90 MG TABLET PO SCH (21:00)
[2023-12-24 01:05] VITALS: O2SAT 94
[2023-12-24 03:35] LABS: Absolute Eosinophils 0.2 K/uL (0-0.5); Absolute Lymphocytes (CBC) 1.1 K/uL (0.7-4.9); Absolute Monocytes 0.8 K/uL (0.1-1.3); Absolute Neutrophil 3.8 K/uL (1.8-8.0); Basophils % 0.6 % (0-1.3); Eosinophils % 3.3 % (0-4.4); Hematocrit 25.6 % (39.6-49.0); Hemoglobin 8.2 g/dL (13.6-17.9); Lymphocytes % 18.6 % (15.3-44.8); MCH 25.1 pg (27.0-35.0); MCHC 32.2 g/dL (32.0-36.0); MCV 78.1 fL (80-100); MPV 9.6 fL (7.6-11.3); Monocytes % 13.2 % (3.3-12.3); Neutrophils % 64.3 % (41.7-73.7); Nucleated Red Blood Cells % 0.1 % (0-0); Platelets 123 thou/uL (152-406); RBC Red Blood Cell Count 3.28 M/uL (4.33-5.43); Red Cell Distribution Width 16.5 % (12.1-15.2)
[2023-12-24 03:57] LABS: Albumin 3.1 g/dL (3.4-5.0); Albumin/Globulin Ratio 0.8 (1.1-1.8); Bilirubin Total 0.4 mg/dL (0.2-1.0); Globulin 3.9 g/dL (2.3-3.5)
--- NOTE | 2023-12-24 07:39 | ECHO ---
HEIGHT: 6 ft 0 in WEIGHT: 160 lb 0 oz DATE OF STUDY: 12/23/[address]: Orion Delgado NP 2-DIMENSIONAL: YES M.MODE: YES DOPPLER: YES COLOR FLOW: YES TDS: PORTABLE: YES DEFINITY: BUBBLE STUDY: DIAGNOSIS: NON ST ELEVATION MYOCARDIAL INFARCTION, MURMUR CARDIAC HISTORY: CATHERIZATION: YES SURGERY: NO PROSTHETIC VALVE: NO PACEMAKER: NO MEASUREMENTS (cm) DIASTOLIC (NORMALS) SYSTOLIC (NORMALS) IVSd 1.1 (0.6-1.2) LA Diam 2.1 (1.9-4.0) LVEF 82% LVIDd 3.3 (3.5-5.7) LVIDs 1.7 (2.0-3.5) %FS 49% LVPWd 1.2 (0.6-1.2) Ao Diam 3.0 (2.0-3.7) 2 DIMENSIONAL ASSESSMENT: RIGHT ATRIUM: POOR WINDOWS LEFT ATRIUM: POOR WINDOWS RIGHT VENTRICLE: POOR WINDOWS LEFT VENTRICLE: POOR WINDOWS TRICUSPID VALVE: POOR WINDOWS MITRAL VALVE: POOR WINDOWS PULMONIC VALVE: POOR WINDOWS AORTIC VALVE: POOR WINDOWS PERICARDIAL EFFUSION: POOR WINDOWS AORTIC ROOT: POOR WINDOWS LEFT VENTRICULAR WALL MOTION: DOPPLER/COLOR FLOW: COMMENTS: 1. POOR WINDOWS, LIMITED STUDY 2. OVERALL NORMAL LEFT VENTRICULAR EJECTION FRACTINO GREATER THAN 60% TECHNOLOGIST: DEVAN MCGOVERN
--- NOTE | 2023-12-24 08:02 | P.DS ---
Admission Date: 12/22/23 Discharge Date: 12/24/23 Disposition: ROUTINE DISCHARGE Discharge Condition: GOOD Reason for Admission: NSTEMI Consultations: Cardiology - Dr. Rodriguez / Dr. Conrad Brief History of Present Illness: 68yo M, PMH: iron deficiency anemia Patient presents the emergency department chief complaint of right arm pain, chest pain. He reports that his symptoms started while walking around today getting ready to move. He also noted that he rides his bike approximately 15 miles per day approximately 5 days/week in the past few times has been riding his bike he had similar pain in his right arm radiating to his chest. He does not see a doctor regularly and has not had any testing including stress test or heart catheterization in the past. He was evaluated in the emergency department his initial high sensitive troponin was within normal limits, second troponin was obtained as initially patient wanted to go home but it was elevated at 289.1, patient agreeable to stay in the hospital for NSTEMI. Of note he was also anemic with a hemoglobin of 9.2, no known history of anemia denies bright red blood per rectum, melena or hematochezia.ED physician discussed case with cardiology who recommends admission to hospital service. Hospital Course: Problem List: NSTEMI Iron deficiency anemia Physician discharge instructions Patient was admitted to the hospital for chest pain, right arm pain. His initial high-sensitivity troponin was within normal limits but repeat troponin was elevated. Patient was started on a heparin drip and monitored overnight, no further episode of chest pain but troponin trended up significantly up to 23,000. Patient underwent cardiac catheterization on 12/22 and was found to have LAD stenosis with stent placed and angioplasty of diagonal 1. Patient was also noted to be anemic with initial hemoglobin of 9.2, down to 8.2, stable. He was found to be iron deficient, last colonoscopy was reportedly around 20 years ago. Discussed need for iron supplementation, outpatient colonoscopy to evaluate / rule out GI source. At discharge patient will be prescribed the following medications Plavix 75 mg daily Atorvastatin 40 mg at bedtime Metoprolol tartrate 25 mg twice daily He was also instructed to purchase [id number] the following medications aspirin 81 mg daily [id number] iron supplement daily It is very important that you take the aspirin, Plavix, metoprolol and atorvastatin to prevent issues with your heart/this stent was placed Please follow-up with/establish yourself with a primary care doctor in the area in the next 1 to 2 weeks Please also follow-up with cardiology in 1 to 2 weeks You should also see a GI doctor to schedule a colonoscopy in the future giving your iron deficiency anemia Physical exam GEN: Alert, oriented, NAD HEENT: Normal conjunctiva, sclera anicteric CV: Regular rate and rhythm, no edema Pulm: Nonlabored respirations on room air ABD: Soft, nontender, nondistended MSK: No joint tenderness Integumentary: No rashes Neuro: Normal speech, normal affect Vital Signs/Physical Exam: Temp Pulse Resp BP Pulse Ox 97.8 F 88 17 128/73 96 12/24/23 04:00 12/24/23 05:46 12/24/23 04:00 12/24/23 05:46 12/24/23 04:00 Laboratory Data at Discharge: WBC 5.80 thou/uL (4.3-10.9) 12/24/23 02:24 Hgb 8.2 g/dL (13.6-17.9) L 12/24/23 02:24 Hct 25.6 % (39.6-49.0) L 12/24/23 02:24 Plt Count 123 thou/uL (152-406) L 12/24/23 02:24 PT 11.5 SECONDS (9.5-12.5) 12/22/23 11:15 INR 1.05 12/22/23 11:15 APTT 53.9 SECONDS (24.3-36.9) H 12/23/23 07:07 Sodium 137 mEq/L (136-145) 12/24/23 02:24 Potassium 4.0 mEq/L (3.5-5.1) 12/24/23 02:24 BUN 28 mg/dL (7-18) H 12/24/23 02:24 Creatinine 1.39 mg/dL (0.70-1.30) H 12/24/23 02:24 Glucose 107 mg/dL (74-106) H 12/24/23 02:24 Magnesium 2.2 mg/dL (1.6-2.4) 12/22/23 11:15 Total Bilirubin 0.4 mg/dL (0.2-1.0) 12/24/23 02:24 AST 52 U/L (15-37) H 12/24/23 02:24 ALT 23 U/L (16-61) 12/24/23 02:24 Alkaline Phosphatase 71 U/L (45-117) 12/24/23 02:24 Triglycerides 79 mg/dL (<150) 12/23/23 07:07 Cholesterol 129 mg/dL (<200) 12/23/23 07:07 HDL Cholesterol 41 mg/dL (40-60) 12/23/23 07:07 Cholesterol/HDL Ratio 3.15 12/23/23 07:07 Home Medications: Atorvastatin Calcium [Lipitor] 40 mg PO BEDTIME #30 tab 12/23/23 Clopidogrel Bisulfate [Plavix] 75 mg PO DAILY #30 tab 12/23/23 Metoprolol Tartrate [Lopressor*] 12.5 mg PO BID #30 tab 12/23/23 New Medications: Atorvastatin Calcium [Lipitor] 40 mg PO BEDTIME #30 tab Metoprolol Tartrate [Lopressor*] 12.5 mg PO BID #30 tab Clopidogrel Bisulfate [Plavix] 75 mg PO DAILY #30 tab Physician Discharge Instructions: Physician discharge instructions Patient was admitted to the hospital for chest pain, right arm pain. His initial high-sensitivity troponin was within normal limits but repeat troponin was elevated. Patient was started on a heparin drip and monitored overnight, no further episode of chest pain but troponin trended up significantly up to 23,000. Patient underwent cardiac catheterization on 12/22 and was found to have LAD stenosis with stent placed and angioplasty of diagonal 1. Patient was also noted to be anemic with initial hemoglobin of 9.2, down to 8.2, stable. He was found to be iron deficient, last colonoscopy was reportedly around 20 years ago. Discussed need for iron supplementation, outpatient colonoscopy to evaluate / rule out GI source. At discharge patient will be prescribed the following medications Plavix 75 mg daily Atorvastatin 40 mg at bedtime Metoprolol tartrate 25 mg twice daily He was also instructed to purchase [id number] the following medications aspirin 81 mg daily [id number] iron supplement daily It is very important that you take the aspirin, Plavix, metoprolol and tahir rvastatin to prevent issues with your heart/this stent was placed Please follow-up with/establish yourself with a primary care doctor in the area in the next 1 to 2 weeks Please also follow-up with cardiology in 1 to 2 weeks You should also see a GI doctor to schedule a colonoscopy in the future giving your iron deficiency anemia Diet: AHA Activity: Ad sachin Followup: Jacques Conrad MD [ACTIVE - CAN ADMIT] - 1-2 Weeks NONE,NONE [Primary Care Provider] - 1-2 Weeks Time spent managing pt's care (in minutes): 45
[2023-12-24] MEDS ORDERED: ENOXAPARIN 40 MG/0.4 ML SQ SCH (09:00)
[2023-12-24] MEDS: CLOPIDOGREL 75 MG TABLET PO SCH (11:38)
[2023-12-24] MEDS: FERROUS SULFATE 325 MG TAB PO SCH (11:38)
[2023-12-24 15:16] VITALS: BP 107/65; TEMP 98.4
--- NOTE | 2023-12-24 16:47 | P.PN ---
Subjective Date of Service: 12/24/23 Chief Complaint: NSTEMI Subjective: No new changes Review of Systems 10-point ROS is otherwise unremarkable Physical Examination - Vital Signs Temperature: 98.4 F Blood Pressure: 107/65 Pulse: 68 Respirations: 18 Pulse Ox (%): 97 - Physical Exam General: Alert, Oriented x3 HEENT: Atraumatic Neck: Supple Respiratory: Clear to auscultation bilaterally Cardiovascular: No edema, Normal S1 S2 Gastrointestinal: Normal bowel sounds Assessment And Plan - Current Problems (Diagnosis) (1) NSTEMI (non-ST elevated myocardial infarction) Current Visit: Yes Status: Acute Plan: Patient is s/p PCI of LAD and PTCA of diagonal. ASA 81 mg daily Plavix 75 mg daily for 12 months. Lipitor 40 mg daily Metoprolol 12.5 mg po BID (2) HTN (hypertension) Current Visit: Yes Status: Acute Plan: Continue Metoprolol Echo is normal (3) HLD (hyperlipidemia) Current Visit: Yes Status: Acute Plan: Continue Lipitor
== END 2023-12-24 17:53 | disposition home or self-care (01) | DRG 322 ==
LOC: ER 10:46 → 2ND 14:17
PROVIDERS: ADMIT Hospitalist; ATTEND Hospitalist
PROC: 027034Z Dilation of Coronary Artery, One Artery with Drug-eluting Intraluminal Device, Percutaneous Approach (ICD-10-PCS; principal; 2023-12-23)
PROC: 02703ZZ Dilation of Coronary Artery, One Artery, Percutaneous Approach (ICD-10-PCS; 2023-12-23)
PROC: 4A023N7 Measurement of Cardiac Sampling and Pressure, Left Heart, Percutaneous Approach (ICD-10-PCS; 2023-12-23)
PROC: B2111ZZ Fluoroscopy of Multiple Coronary Arteries using Low Osmolar Contrast (ICD-10-PCS; 2023-12-23)
DX: I21.4 Non-ST elevation (NSTEMI) myocardial infarction (principal); E78.5 Hyperlipidemia, unspecified; D50.9 Iron deficiency anemia, unspecified; F17.200 Nicotine dependence, unspecified, uncomplicated; Z60.2 Problems related to living alone; Z90.49 Acquired absence of other specified parts of digestive tract; Z79.02 Long term (current) use of antithrombotics/antiplatelets; Z79.899 Other long term (current) drug therapy
CPT/HCPCS: 36415; 70450; 71275; 76937; 80048; 80053; 80061; 80076; 82728; 83540; 83735; 83880; 84439; 84443; 84466; 84484; 85025; 85347; 85610; 85730; 92920; 93005; 93306; 93458; 99152; 99153; C1725; C1877; C1893; C9600; J0461; J1170; J1644; J1940; J2001; J2250; J2405; J3010; J7030; Q9967

== ENCOUNTER 2023-12-28 17:07 | Emergency (ER) | payer OTHER ==
[2023-12-28] MEDS ORDERED: PANTOPRAZOLE 40 MG INJ ONE ×2 (18:07→21:35)
[2023-12-28] MEDS ORDERED: NA CHLORIDE 0.9% 1,000 ML ONE (18:07)
[2023-12-28 18:12] LABS: Absolute Basophils 0.1 K/uL (0-0.5); Absolute Eosinophils 0.2 K/uL (0-0.5); Absolute Lymphocytes (CBC) 0.9 K/uL (0.7-4.9); Absolute Monocytes 0.8 K/uL (0.1-1.3); Basophils % 1.4 % (0-1.3); Eosinophils % 3.5 % (0-4.4); Hematocrit 19.2 % (39.6-49.0); Hemoglobin 6.3 g/dL (13.6-17.9); Lymphocytes % 18.7 % (15.3-44.8); MCH 26.1 pg (27.0-35.0); MCHC 32.7 g/dL (32.0-36.0); MCV 79.7 fL (80-100); MPV 9.3 fL (7.6-11.3); Monocytes % 15.6 % (3.3-12.3); Neutrophils % 60.8 % (41.7-73.7); Nucleated Red Blood Cells % 0.4 % (0-0); Platelets 132 thou/uL (152-406); RBC Red Blood Cell Count 2.41 M/uL (4.33-5.43); Red Cell Distribution Width 17.9 % (12.1-15.2)
--- NOTE | 2023-12-28 18:18 | RAD REPORT ---
EXAM DESCRIPTION: RAD - Chest Single View - 12/28/2023 6:13 pm CLINICAL HISTORY: Chest pain;Dyspnea Chest pain. COMPARISON: No comparisons FINDINGS: Portable technique limits examination quality. The lungs are emphysematous with mild increased lung markings in the left parahilar location which co uld be infiltrate/pneumonia. The right lung appears grossly clear. The heart is upper limit normal in size. No displaced fractures.
[2023-12-28 18:20] LABS: PT Prothrombin Time 12.1 SECONDS (9.5-12.5); Protime INR 1.1
[2023-12-28 18:40] LABS: ALT/SGPT 21 U/L (16-61); AST/SGOT 18 U/L (15-37); Albumin 2.9 g/dL (3.4-5.0); Albumin/Globulin Ratio 0.7 (1.1-1.8); Alkaline Phosphatase 68 U/L (45-117); Anion Gap 7.5 mEq/L (5.0-15.0); BUN Blood Urea Nitrogen 37 mg/dL (7-18); Bicarbonate 27 mEq/L (21-32); Bilirubin Total 0.3 mg/dL (0.2-1.0); Globulin 3.9 g/dL (2.3-3.5); Glomerular Filtration Rate 52 ml/min (=/>90); Glucose Level 116 mg/dL (74-106); Lipase 40 U/L (13-75); Magnesium 1.9 mg/dL (1.6-2.4); NT PRO-BNP 580 pg/mL (<125); Potassium 3.5 mEq/L (3.5-5.1); Protein, Total 6.8 g/dL (6.4-8.2); Sodium Level 138 mEq/L (136-145)
[2023-12-28 18:50] LABS: Bilirubin Direct < 0.1 mg/dL (0-0.2); Bilirubin Indirect, Calculated ND mg/dL (0.2-0.8)
[2023-12-28 18:54] LABS: Troponin High Sensitivity 470.6 pg/mL (<58.9)
--- NOTE | 2023-12-28 19:47 | RAD REPORT ---
EXAM DESCRIPTION: CT - Head Brain Wo Cont - 12/28/2023 7:41 pm CLINICAL HISTORY: SYNCOPE Headache, drowsiness COMPARISON: Head Brain Wo Cont dated 12/22/2023; Chest For Pe Angio dated 12/22/2023 TECHNIQUE: All CT scans are performed using dose optimization technique as appropriate and may inclu de automated exposure control or mA/KV adjustment according to patient size. FINDINGS: No intracranial hemorrhage, hydrocephalus or extra-axial fluid collection.There is a 17 mm area of diminished density seen in the white matter tracts of the right frontal lobe adjacent to the right frontal horn which is new since 12/22/2023 prior study. No midline shift is evident. Vertebral atherosclerosis. The paranasal sinuses and mastoids are clear. The calvarium is intact. IMPRESSION: There is a 17 mm area of new diminished density right frontal white matter which is prob ably a subacute infarct. Otherwise, no acute finding is demonstrated.
--- NOTE | 2023-12-28 20:04 | RAD REPORT ---
EXAM DESCRIPTION: CT - Chest For Pe Angio - 12/28/2023 7:44 pm CLINICAL HISTORY: Chest pain. Chest pain;Dyspnea COMPARISON: Chest For Pe Angio dated 12/22/2023; Head Brain Wo Cont dated 12/28/2023 TECHNIQUE: CT angiogram of the pulmonary arteries was performed with MIP. All CT scans are performed using dose optimization technique as appropriate and may include automated exposure control or mA/KV adjustment according to patient size. FINDINGS: No evidence of pulmonary thromboembolism. No acute aortic finding demonstrated. Mild interstitial pulmonary edema seen. The heart is moderately enlarged. No significant pericardial or pleural fluid. No concerning bony finding. IMPRESSION: No evidence of pulmonary thromboembolism. Mild CHF pattern is observed.
--- NOTE | 2023-12-28 20:10 | ER ---
Nurse's Notes [facility] Name: Jorge Patterson Age: 68 yrs Sex: Male : 1955 Arrival Date: 12/28/2023 Time: 17:07 Bed 3 Private MD: Diagnosis: GI Bleed/ Gastrointestinal hemorrhage, unspecified;Dyspnea;Chest pain, unspecified;Other acute kidney failure;Abnormal findings on diagnostic imaging of other specified body structures-abnormal ct brain;Adverse effect of anticoagulants Presentation: 12/27 17:37 Chief complaint: Patient states: he had cardiac stents placed last week, and started ap3 having chest pain yesterday with increased weakness and shortness of breath on ambulation. patient rates his chest pain at a 3/10 on the pain scale at this time. Coronavirus screen: At this time, the client does not indicate any symptoms associated with coronavirus-19. Ebola Screen: No symptoms or risks identified at this time. Initial Sepsis Screen: Does the patient meet any 2 criteria? No. Patient's initial sepsis screen is negative. Does the patient have a suspected source of infection? No. Patient's initial sepsis screen is negative. Risk Assessment: Do you want to hurt yourself or someone else? Patient reports no desire to harm self or others. Onset of symptoms was December 27, 2023. 17:37 Method Of Arrival: EMS: [facility] ap3 17:37 Acuity: ERICKA 2 ap3 18:00 Care prior to arrival: Medication(s) given: ASA, 81 mg, x 4, IV initiated. 18 GA, in ap3 the right antecubital area. Triage Assessment: 17:39 General: Appears in no apparent distress. Behavior is calm, cooperative, Reports ap3 fatigue for. Pain: Complains of pain in chest Pain currently is 3 out of 10 on a pain scale. at worst was 6 out of 10 on a pain scale. Neuro: Level of Consciousness is awake, alert, obeys commands, Oriented to person, place, time, situation. Cardiovascular: Reports chest pain, shortness of breath. Respiratory: Reports shortness of breath on exertion. Historical: - Allergies: 17:39 No Known Allergies; ap3 - PSHx: 17:39 Cholecystectomy; cardiac stents; ap3 - Immunization history:: Adult Immunizations up to date. - Infectious Disease History:: Denies. - Social history:: Smoking status: Patient reports the use of cigarette tobacco products, denies chronic smoking, but will smoke occasionally. - Family history:: not pertinent. Screenin:40 Abuse screen: Denies threats or abuse. Nutritional screening: No deficits noted. ap3 Tuberculosis screening: No symptoms or risk factors identified. 18:13 [facility] ED Fall Risk Assessment (Adult) History of falling in the last 3 months, me1 including since admission No falls in past 3 months (0 pts) Confusion or Disorientation No (0 pts) Intoxicated or Sedated No (0 pts) Impaired Gait No (0 pts) Mobility Assist Device Used No (0 pt) Altered Elimination No (0 pt) Score/Fall Risk Level 0 - 2 = Low Risk Maintained a safe environment, Provided non-skid footwear, Hourly rounding (assess needs \T\ fall precautionary measures) done. Assessment: 18:13 General: Appears comfortable, well groomed, well developed, well nourished, Behavior is me1 calm, cooperative, appropriate for age, Reports he had cardiac stents placed last week, and started having chest pain yesterday with increased weakness and shortness of breath on ambulation. patient rates his chest pain at a 3/10 on the pain scale at this time. Pain: Complains of pain in chest Pain radiates to right arm and palmar aspect of right forearm and right tricep and dorsal aspect of right forearm and right bicep Pain currently is 3 out of 10 on a pain scale. Quality of pain is described as shooting, Pain began 1 day ago. Is intermittent. Neuro: Level of Consciousness is awake, alert, obeys commands, Oriented to person, place, time, situation, Appropriate for age. Cardiovascular: Capillary refill < 3 seconds Patient's skin is warm and dry. Respiratory: Airway is patent Respiratory effort is even, unlabored, Respiratory pattern is regular, symmetrical. GI: No signs and/or symptoms were reported involving the gastrointestinal system. : No signs and/or symptoms were reported regarding the genitourinary system. EENT: No signs and/or symptoms were reported regarding the EENT system. Derm: Skin is intact, is healthy with good turgor, Skin is pink, warm \T\ dry. Musculoskeletal: No signs and/or symptoms reported regarding the musculoskeletal system. Vital Signs: 17:37 BP 113 / 75; Pulse 66; Resp 18; Temp 97.7(O); Pulse Ox 98% on R/A; Weight 68.04 kg; ap3 Height 6 ft. 0 in. ; Pain 3/10; 21:00 BP 112 / 70; Pulse 72; Resp 23; Temp 97; Pulse Ox 98% ; vc1 21:43 BP 114 / 67; Pulse 74; Resp 19; Temp 97; Pulse Ox 98% ; vc1 22:00 BP 107 / 77; Pulse 74; Resp 17; Pulse Ox 97% on R/A; me1 23:00 BP 114 / 67; Pulse 73; Resp 17; Pulse Ox 96% on R/A; me1 12/28 00:18 BP 102 / 88; Pulse 76; Resp 17; Temp 98; Pulse Ox 96% ; rv 12/27 17:37 Body Mass Index 20.34 (68.04 kg, 182.88 cm) ap3 12/27 17:37 Pain Scale: Adult ap3 ED Course: 12/27 17:36 Patient arrived in ED. ap3 17:39 Triage completed. ap3 17:40 Arm band placed on right wrist. ap3 17:40 Patient has correct armband on for positive identification. Placed in gown. Bed in low ap3 position. Call light in reach. Side rails up X 1. telemetry monitor on. Pulse ox on. NIBP on. 17:41 Hubert Martinez MD is Attending Physician. [facility] 17:52 Shraddha Burciaga, SILVA is Primary Nurse. me1 18:04 EKG done, by ED staff, reviewed by Hubert Martinez MD. Initial lab(s) drawn, by ri, sent [facility] to lab. Maintain EMS IV. Dressing intact. Good blood return noted. Site clean \T\ dry. Gauge \T\ site: 18g RAC. 18:13 Provided Education on: POC. Verbalized understanding.. me1 18:13 No provider procedures requiring assistance completed. me1 18:15 XRAY Chest (1 view) In Process Unspecified. EDMS 18:52 Notified ED physician of a critical lab result(s). troponin of 470.6. ap3 19:43 CT Head Brain wo Cont In Process Unspecified. EDMS 19:45 CT Chest For PE Angio In Process Unspecified. EDMS 20:06 Initiated transfer with Artemio at [facility]. rv1 20:46 Type And Screen Sent. me1 21:24 Inserted saline lock: 20 gauge in left forearm, using aseptic technique. rv 23:[address] Arellano \T\ 2036, pt going to [facility] [address] [address] Bed 2. rv1 12/28 00:18 Patient transferred, IV remains in place. rv Administered Medications: 12/27 18:00 Not Given (given by EMS): aspirinchewable tablet 81 mg PO once ap3 18:08 Drug: NS 0.9% IV 500 ml IV at bolus once Route: IV; Rate: bolus; Site: right ld1 antecubital; 20:39 Follow up: Response: No adverse reaction; IV Status: Completed infusion; IV Intake: me1 500ml 18:09 Drug: NS 0.9% IV 1000 ml IV at 75 ml/hr continuous Route: IV; Rate: 75 ml/hr; Site: ld1 right antecubital; 12/28 00:17 Follow up: IV Status: Infusion continued upon transfer rv 12/27 18:09 Drug: Pantoprazole IVP 40 mg IVP once Route: IVP; Site: right antecubital; ld1 20:40 Follow up: Response: No adverse reaction me1 21:51 Drug: Pantoprazole IVP 40 mg IVP once Route: IVP; Site: left forearm; rv 12/28 00:17 Follow up: Response: No adverse reaction rv 12/27 21:51 Drug: Pantoprazole IV 8 mg/hr IV at 25 ml/hr continuous; (Standard dilution is 80 mg in rv 250 mL NS) Route: IV; Rate: 25 ml/hr; Site: left forearm; 12/28 00:17 Follow up: IV Status: Infusion continued upon transfer rv Medication: 12/27 18:13 VIS not applicable for this client. me1 22:25 Blood products: PRBCs X 1 unit given. See transfusion record. rv 12/28 00:30 Blood products: PRBCs X 1 unit given. See transfusion record. rv Intake: 12/27 20:39 IV: 500ml; Total: 500ml. me1 Outcome: 20:09 ER care complete, transfer ordered by MD. duff 12/28 00:18 Transferred by ground EMS to [facility], Transfer form completed. rv X-rays sent w/ patient. Condition: stable Instructed on the need for transfer, 00:45 Patient left the ED. rv Signatures: Dispatcher [employer] Hubert Coelho MD MD cha Prokisch, Amanda RN RN ap3 Avtar Johnson RN RN rv Karissa Magana RN RN ld1 Jahaira Cintron RN RN vc1 Macy Crane rv1 Shraddha Burciaga RN RN me1 Corrections: (The following items were deleted from the chart) 12/27 18:13 17:37 Chief complaint: Patient states: he had cardiac stents placed last week, and me1 started having chest pain yesterday with increased weakness and shortness of breath on ambulation. patient rates his chest pain at a 3/10 on the pain scale at this time ap3
--- NOTE | 2023-12-28 20:10 | EDPHYS ---
Physician Documentation [facility] Name: Jorge Patterson Age: 68 yrs Sex: Male : 1955 Arrival Date: 12/28/2023 Time: 17:07 Bed 3 Private MD: ED Physician Hubert Martinez HPI: 12/27 17:59 This 68 yrs old Male presents to ER via EMS with complaints of cp, sob, and omega right arm pain. 17:59 The patient or guardian complains of pain. The complaints affect the right bicep, omega dorsal aspect of right forearm, right tricep and palmar aspect of right forearm. Context: resulted from unknown cause, possible cath. Onset: The symptoms/episode began/occurred 2 day(s) ago. Treatment prior to arrival includes: no previous treatment. Modifying factors: The symptoms are alleviated by nothing. the symptoms are aggravated by nothing. The patient has shortness of breath with light activity. Onset: The symptoms/episode began/occurred yesterday. The patient or guardian reports chest pain that is located primarily in the anterior chest wall, bilaterally. The pain does not radiate. Associated signs and symptoms: Pertinent positives: dizziness. Severity of symptoms: At their worst the symptoms were moderate in the emergency department the symptoms are unchanged. The chest pain is described as a pressure. Modifying factors: The symptoms are alleviated by nothing. the symptoms are aggravated by nothing. Severity of pain: At its worst the pain was mild in the emergency department the pain has resolved and did so just prior to arrival. Severity of symptoms: At their worst the symptoms were moderate, in the emergency department the symptoms are unchanged. The patient has experienced similar episodes in the past, a few times. Historical: - Allergies: 17:39 No Known Allergies; ap3 - PSHx: 17:39 Cholecystectomy; cardiac stents; ap3 - Immunization history:: Adult Immunizations up to date. - Infectious Disease History:: Denies. - Social history:: Smoking status: Patient reports the use of cigarette tobacco products, denies chronic smoking, but will smoke occasionally. - Family history:: not pertinent. ROS: 17:59 Constitutional: Negative for fever, chills, and weight loss, Eyes: Negative for injury, omega pain, redness, and discharge, ENT: Negative for injury, pain, and discharge, Neck: Negative for injury, pain, and swelling, Abdomen/GI: Negative for abdominal pain, nausea, vomiting, diarrhea, and constipation, Back: Negative for injury and pain, : Negative for injury, bleeding, discharge, and swelling, Skin: Negative for injury, rash, and discoloration, Neuro: Negative for headache, weakness, numbness, tingling, and seizure, Psych: Negative for depression, anxiety, suicide ideation, homicidal ideation, and hallucinations, Allergy/Immunology: Negative for hives, rash, and allergies, Endocrine: Negative for neck swelling, polydipsia, polyuria, polyphagia, and marked weight changes, Hematologic/Lymphatic: Negative for swollen nodes, abnormal bleeding, and unusual bruising, 17:59 Cardiovascular: Positive for chest pain, 17:59 Respiratory: Positive for dyspnea on exertion, shortness of breath, 17:59 MS/extremity: Positive for pain, of the right arm, Exam: 17:59 Constitutional: This is a well developed, well nourished patient who is awake, alert, omega and in no acute distress. Head/Face: Normocephalic, atraumatic. Eyes: Pupils equal round and reactive to light, extra-ocular motions intact. Lids and lashes normal. Conjunctiva and sclera are non-icteric and not injected. Cornea within normal limits. Periorbital areas with no swelling, redness, or edema. ENT: Nares patent. No nasal discharge, no septal abnormalities noted. Tympanic membranes are normal and external auditory canals are clear. Oropharynx with no redness, swelling, or masses, exudates, or evidence of obstruction, uvula midline. Mucous membranes moist. Neck: Trachea midline, no thyromegaly or masses palpated, and no cervical lymphadenopathy. Supple, full range of motion without nuchal rigidity, or vertebral point tenderness. No Meningismus. Chest/axilla: Normal chest wall appearance and motion. Nontender with no deformity. No lesions are appreciated. Cardiovascular: Regular rate and rhythm with a normal S1 and S2. No gallops, murmurs, or rubs. Normal PMI, no JVD. No pulse deficits. Respiratory: Lungs have equal breath sounds bilaterally, clear to auscultation and percussion. No rales, rhonchi or wheezes noted. No increased work of breathing, no retractions or nasal flaring. Abdomen/GI: Soft, non-tender, with normal bowel sounds. No distension or tympany. No guarding or rebound. No evidence of tenderness throughout. Back: No spinal tenderness. No costovertebral tenderness. Full range of motion. Male : Normal genitalia with no discharge or lesions. Skin: Warm, dry with normal turgor. Normal color with no rashes, no lesions, and no evidence of cellulitis. MS/ Extremity: Pulses equal, no cyanosis. Neurovascular intact. Full, normal range of motion. Neuro: Awake and alert, GCS 15, oriented to person, place, time, and situation. Cranial nerves II-XII grossly intact. Motor strength 5/5 in all extremities. Sensory grossly intact. Cerebellar exam normal. Normal gait. Psych: Awake, alert, with orientation to person, place and time. Behavior, mood, and affect are within normal limits. 17:59 ECG was reviewed by the Attending Physician. 20:10 Abdomen/GI: Rectal exam: Stool: black, hemorrhoid(s), are not appreciated, mass, is not omega appreciated, swelling, is not appreciated, tenderness, is not appreciated, fecal impaction, is not appreciated, the exam is chaperoned by the nurse, Vital Signs: 17:37 BP 113 / 75; Pulse 66; Resp 18; Temp 97.7(O); Pulse Ox 98% on R/A; Weight 68.04 kg; ap3 Height 6 ft. 0 in. ; Pain 310; 21:00 BP 112 / 70; Pulse 72; Resp 23; Temp 97; Pulse Ox 98% ; vc1 21:43 BP 114 / 67; Pulse 74; Resp 19; Temp 97; Pulse Ox 98% ; vc1 22:00 BP 107 / 77; Pulse 74; Resp 17; Pulse Ox 97% on R/A; me1 23:00 BP 114 / 67; Pulse 73; Resp 17; Pulse Ox 96% on R/A; me1 12/28 00:18 BP 102 / 88; Pulse 76; Resp 17; Temp 98; Pulse Ox 96% ; rv 12/27 17:37 Body Mass Index 20.34 (68.04 kg, 182.88 cm) ap3 12/27 17:37 Pain Scale: Adult ap3 MDM: 12/27 17:41 Patient medically screened. omega 18:04 Differential diagnosis: Anemia CHF exacerbation, abnormal EKG, acute myocardial omega infarction, acute pericarditis, chest wall pain, Cholelithiasis esophagitis, gastritis, Myocardial Infarction pulmonary edema, Pulmonary Embolism Unstable Angina. Antibiotic administration: Not indicated. HEART Score: History: Moderately Suspicious (1), ECG: Non specific repolarization disturbance / LBTB / PM (1), Age: > or = 65 years (2), Risk Factors: > or = 3 Risk factors for atherosclerotic disease (2), [Hypercholesterolemia] [Hypertension] [+ Family HX] Troponin: < or = 1 x Normal Limit (0). The patient was given aspirin in the Emergency Department. ALTAGRACIA Risk Score: 1 - patient's age is greater or equal to 65 years, 1 - Three or more CAD risk factors, 1- Known CAD, 1 - Recent [<24hrs] Severe Angina, TOTAL SCORE = 4. Immunization status: Pneumococcal vaccine: within last 5 years. Influenza vaccine: within last 5 years. Data reviewed: vital signs, nurses notes, lab test result(s), EKG, radiologic studies, plain films. I considered the following discharge prescriptions or medication management in the emergency department Medications were administered in the Emergency Department. See MAR. Test considered but Not performed: Ultrasound no 2 d eco in ed. Historians other than the Patient: EMS: ems well informed. Care significantly affected by the following chronic conditions: Hypertension. Counseling: I had a detailed discussion with the patient and/or guardian regarding the historical points, exam findings, and any diagnostic results supporting the discharge/admit diagnosis, lab results, radiology results, the need for further work-up and treatment in the hospital. 12/27 19:19 Order name: Type And Screen [facility] 12/27 17:51 Order name: Basic Metabolic Panel; Complete Time: 19:18 12/27 17:51 Order name: CBC with Diff; Complete Time: 19:18 12/27 17:51 Order name: LFT's; Complete Time: 19:18 12/27 17:51 Order name: Magnesium; Complete Time: 19:18 12/27 17:51 Order name: NT PRO-BNP; Complete Time: 19:18 12/27 17:51 Order name: PT-INR; Complete Time: 19:18 12/27 17:51 Order name: Troponin HS; Complete Time: 19:18 omega 12/27 17:51 Order name: Lipase; Complete Time: 19:18 omega 12/27 19:33 Order name: Packed RBC Leukored [facility] 12/27 21:49 Order name: ABO/RH no charge [facility] 12/27 17:51 Order name: XRAY Chest (1 view); Complete Time: 19:18 [facility] 12/27 17:57 Order name: CT Chest For PE Angio [facility] 12/27 17:57 Order name: CT Head Brain wo Cont; Complete Time: 19:58 [facility] 12/27 17:51 Order name: Cardiac monitoring; Complete Time: 18:04 [facility] 12/27 17:51 Order name: EKG - Nurse/Tech; Complete Time: 18:04 [facility] 12/27 17:51 Order name: IV Saline Lock; Complete Time: 18:04 [facility] 12/27 17:51 Order name: Labs collected and sent; Complete Time: 18:04 [facility] 12/27 17:51 Order name: O2 Per Protocol; Complete Time: 18:04 [facility] 12/27 17:51 Order name: O2 Sat Monitoring; Complete Time: 18:04 [facility] 12/27 19:19 Order name: Transfuse; Complete Time: 22:41 [facility] EC:59 Rate is 68 beats/min. Rhythm is regular. QRS [place] is Normal. [place] interval is normal. QRS omega interval is normal. QT interval is normal. No Q waves. T waves are Normal. No ST changes noted. Clinical impression: LVH and No evidence of ischemia. Interpreted by me. Reviewed by me. Administered Medications: 18:00 Not Given (given by EMS): aspirinchewable tablet 81 mg PO once ap3 18:08 Drug: NS 0.9% IV 500 ml IV at bolus once Route: IV; Rate: bolus; Site: right ld1 antecubital; 20:39 Follow up: Response: No adverse reaction; IV Status: Completed infusion; IV Intake: me1 500ml 18:09 Drug: NS 0.9% IV 1000 ml IV at 75 ml/hr continuous Route: IV; Rate: 75 ml/hr; Site: ld1 right antecubital; 12/28 00:17 Follow up: IV Status: Infusion continued upon transfer 12/27 18:09 Drug: Pantoprazole IVP 40 mg IVP once Route: IVP; Site: right antecubital; ld1 20:40 Follow up: Response: No adverse reaction [facility] 21:51 Drug: Pantoprazole IVP 40 mg IVP once Route: IVP; Site: left forearm; rv 12/28 00:17 Follow up: Response: No adverse reaction rv 12/27 21:51 Drug: Pantoprazole IV 8 mg/hr IV at 25 ml/hr continuous; (Standard dilution is 80 mg in rv 250 mL NS) Route: IV; Rate: 25 ml/hr; Site: left forearm; 12/28 00:17 Follow up: IV Status: Infusion continued upon transfer rv Disposition Summary: 12/28/23 20:09 Transfer Ordered Notes: Transfer Location: [facility] omega Reason: Higher level of care omega Condition: Fair omega Problem: new omega Symptoms: have improved omega Accepting Physician: to rl sanders(12/29/23 00:45) rv Diagnosis - GI Bleed/ Gastrointestinal hemorrhage, unspecified omega - Dyspnea omega - Chest pain, unspecified omega - Other acute kidney failure omega - Abnormal findings on diagnostic imaging of other specified body structures - omega abnormal ct brain - Adverse effect of anticoagulants omega Forms: - Medication Reconciliation Form omega - SBAR form omega Signatures: Dispatcher [employer] EDMS Hubert Martinez MD MD cha Prokisch, Amanda RN RN ap3 Avtar Johnson RN RN rv Sims, Lauren, RN RN ld1 Shraddha Burciaga RN me1 Corrections: (The following items were deleted from the chart) 12/27 17:51 17:51 BASIC METABOLIC PANEL+C.LAB.BRZ ordered. EDMS EDMS 17:51 17:51 CBC+H.LAB.BRZ ordered. EDMS EDMS 17:51 17:51 HEPATIC FUNCTION+C.LAB.BRZ ordered. EDMS EDMS 17:51 17:51 MAGNESIUM+C.LAB.BRZ ordered. EDMS EDMS 17:51 17:51 PROBNP+C.LAB.BRZ ordered. EDMS EDMS 17:51 17:51 PROTIME (+INR)+COAG.LAB.BRZ ordered. EDMS EDMS 17:51 17:51 Troponin High Sensitivity+C.LAB.BRZ ordered. EDMS EDMS 17:51 17:51 LIPASE+C.LAB.BRZ ordered. EDMS EDMS 17:51 17:51 Urinalysis+U.LAB.BRZ ordered. EDMS EDMS 17:51 17:51 Chest Single View+RAD.RAD.BRZ ordered. EDMS EDMS 19:24 19:24 TYPE AND SCREEN+BB.LAB.BRZ ordered. EDMS EDMS 12/28 00:45 04 20:09 to rl sanders cha rv
[2023-12-29 01:51] VITALS: BP 102/88; TEMP 98; O2SAT 96
--- NOTE | 2023-12-29 13:08 | EKG ---
Test Date: 2023-12-28 Test Time: 17:49:45 [employer] Counter Clerk: MARIO MEASUREMENT RESULTS: Intervals: Rate: 68 [place]: 118 QRSD: 98 QT: 428 QTc: 455 [place]: P: 52 [place]: 118 QRS: 72 T: 94 INTERPRETIVE STATEMENTS: Normal sinus rhythm Minimal voltage criteria for LVH, may be normal variant Nonspecific ST and T wave abnormality Abnormal ECG Compared to ECG 12/23/2023 11:12:45 Left ventricular hypertrophy now present Sinus arrhythmia no longer present Ventricular premature complex(es) no longer present Short [place] interval no longer present ST (T wave) deviation still present Electronically Signed On 12-29-23 13:05:51 CDT by Carson Rodriguez
== END 2023-12-29 00:45 | disposition short-term general hospital (02) ==
LOC: ER 17:07
PROC: 30233N1 Transfusion of Nonautologous Red Blood Cells into Peripheral Vein, Percutaneous Approach (ICD-10-PCS; principal; 2023-12-29)
DX: K92.2 Gastrointestinal hemorrhage, unspecified (principal); R06.00 Dyspnea, unspecified; R07.9 Chest pain, unspecified; N17.8 Other acute kidney failure; R93.89 Abnormal findings on diagnostic imaging of other specified body structures; T45.515A Adverse effect of anticoagulants, initial encounter; Z95.818 Presence of other cardiac implants and grafts
CPT/HCPCS: 93005; 85025; 80048; 36415; 86900; 83735; 86850; 85610; 86901; 80076; 86920 ×2; 84484; 83690; 83880; 70450; 71275; 71045; 36430; Q9967; C9113 ×2; P9016 ×2; J7030; 99285